=== PATIENT | female | born 1975 | race Caucasian/White ===

== ENCOUNTER 2025-02-18 11:42 | Inpatient (IN) | payer BC ==
[~2025-02-18] VITALS: Ht 162.6 cm; Wt 111.6 kg
[2025-02-18] MEDS ORDERED: SERT-440 PO (12:17)
[2025-02-18] MEDS ORDERED: ATOR10TA PO (12:17)
[2025-02-18] MEDS ORDERED: QUET50TA24 PO (12:17)
[2025-02-18] MEDS ORDERED: LOSA100T31 PO (12:17)
[2025-02-18] MEDS ORDERED: TRAZ150T75 PO (12:17)
[2025-02-18] MEDS ORDERED: CARV6.252 PO (12:17)
[2025-02-18] MEDS ORDERED: GABA600T12 PO (12:17)
[2025-02-18 12:39] LABS: PLATELET COUNT (AUTO) 259 K/uL (179-408); RED BLOOD CELL COUNT(AUTO) 4.34 MIL/uL (3.63-4.92); RED CELL DISTRIBUTION WIDTH 14.0 % (12.3-17.7); WHITE BLOOD COUNT (AUTO) 5.9 K/uL (3.8-11.8)
[2025-02-18] MEDS: IV NORMAL SALINE 1000 ML BAG IV ONE (12:40)
[2025-02-18 12:53] LABS: ETHANOL < 3 MG/DL (0-10)
[2025-02-18 12:55] LABS: ASPARTATE AMINOTRANSFERASE 18 U/L (15-37); CREATININE 1.8 mg/dL (0.6-1.3); SODIUM SERUM 138 mmol/L (136-145); TOTAL PROTEIN, SERUM 6.6 g/dL (6.4-8.2); UREA NITROGEN, BLOOD 17 mg/dL (7-18)
[2025-02-18 14:22] LABS: *BILIRUBIN,URIN NEGATIVE (NEGATIVE); *BLOOD, URINE NEGATIVE (NEGATIVE); *CLARITY,URINE SLIGHTLY CLOUDY (CLEAR); *COLOR,URINE YELLOW (YELLOW); *KETONES,URINE TRACE (NEGATIVE); *PROTEIN,URINE NEGATIVE (NEGATIVE); *UROBILINOGEN,URINE 1.0 E.U./dl (NORMAL); LEUKOCYTE ESTERASE ,URINE 1+ (NEGATIVE); NITRITE, URINE NEGATIVE (NEGATIVE); UGLUCOSE NEGATIVE (NEGATIVE)
[2025-02-18 14:29] LABS: *AMPHETAMINE, URINE NEGATIVE (NEGATIVE); *BARBITURATE, URINE NEGATIVE (NEGATIVE); *BENZODIAZEPINE, URINE NEGATIVE (NEGATIVE); *CANNABINOID, URINE NEGATIVE (NEGATIVE); *COCCAINE, URINE NEGATIVE (NEGATIVE); *OPIATE, URINE NEGATIVE (NEGATIVE); *PHENCYCLIDINE SCREEN,URINE NEGATIVE (NEGATIVE); FENTANYL, URINE NEGATIVE (NEGATIVE); SQUAMOUS EPITHELIAL CELL,UR MODERATE /HPF (NONE SEEN)
[2025-02-18 16:01] VITALS: BP 114/79
[2025-02-18] MEDS ORDERED: ONDANSETRON 4 MG/2 ML VIAL IV PRN (16:15)
[2025-02-18] MEDS ORDERED: ZOLPIDEM 5 MG TABLET PO PRN (16:15)
[2025-02-18] MEDS ORDERED: MAGNESIUM HYDROXIDE 30 ML LIQUID UDC PO PRN (16:15)
[2025-02-18] MEDS ORDERED: ACETAMINOPHEN 325 MG TABLET PO PRN (16:15)
[2025-02-18] MEDS ORDERED: REMEDY ESSENTIAL ZINC PASTE 113 GM TP PRN (16:15)
[2025-02-18] MEDS ORDERED: DEXTROSE 50% 50 ML DISP.SYRIN IV PRN (16:30)
[2025-02-18] MEDS: IV NS 1000 ML 1,000 ML IV PRN (16:49)
[2025-02-18 16:50] VITALS: BP 126/79; TEMP 97.8; O2SAT 98
[2025-02-18] MEDS ORDERED: QUETIAPINE FUMARATE 25 MG TABLET PO PRN (17:00)
[2025-02-18] MEDS: BLOOD SUGAR DIAGNOSTIC 1 EACH STRIP VI SCH (17:07)
[2025-02-18] MEDS: GABAPENTIN 300 MG CAPSULE PO SCH (17:10)
[2025-02-18 17:11] VITALS: BP 120/78; TEMP 97.8; O2SAT 96
[2025-02-18 17:13] VITALS: BP 114/68; TEMP 97.8; O2SAT 96
[2025-02-18 17:14] VITALS: BP 124/78; TEMP 97.8; O2SAT 98
[2025-02-18] MEDS ORDERED: TOPI25TA49 PO (17:34)
[2025-02-18 19:00] VITALS: BP 107/74; TEMP 97.9; O2SAT 95
[2025-02-18] MEDS ORDERED: Medication Not On Formulary EA (Trazodone Hcl (Desyrel) 1 TAB) PO SCH (21:00)
[2025-02-18] MEDS: TRAZODONE 100 MG TABLET PO SCH (21:23)
[2025-02-18] MEDS: INSULIN REGULAR, HUMAN 1000 UNIT/10 ML VIAL SQ PRN (21:26)
[2025-02-19] VITALS: BP 136/79; O2SAT 95
[2025-02-19 04:00] VITALS: BP 124/78; TEMP 97.9; O2SAT 97
[2025-02-19 07:08] LABS: PLATELET COUNT (AUTO) 228 K/uL (179-408); RED BLOOD CELL COUNT(AUTO) 4.07 MIL/uL (3.63-4.92); RED CELL DISTRIBUTION WIDTH 14.1 % (12.3-17.7); WHITE BLOOD COUNT (AUTO) 4.6 K/uL (3.8-11.8)
[2025-02-19 07:32] VITALS: BP 124/72; TEMP 97.7; O2SAT 97
[2025-02-19 07:48] LABS: CREATININE 0.9 mg/dL (0.6-1.3); SODIUM SERUM 145.0 mmol/L (136-145); UREA NITROGEN, BLOOD 11.0 mg/dL (7-18)
[2025-02-19] MEDS: ATORVASTATIN 10 MG TABLET PO SCH (08:35)
[2025-02-19] MEDS: TOPIRAMATE 25 MG TABLET PO SCH (08:35)
[2025-02-19] MEDS: SERTRALINE HCL 100 MG TABLET PO SCH (08:35)
[2025-02-19] MEDS: CARVEDILOL 6.25 MG TABLET PO SCH (08:38)
[2025-02-19 11:35] VITALS: BP 107/65; TEMP 97.9; O2SAT 96
[2025-02-19 15:50] VITALS: BP 120/72; TEMP 98.3; O2SAT 97
[2025-02-19 19:40] VITALS: BP 127/79; TEMP 98.6; O2SAT 97
[2025-02-19] MEDS: INSULIN REGULAR, HUMAN 300 UNITS/3 ML VIAL SQ PRN (20:22)
[2025-02-20 06:47] LABS: PLATELET COUNT (AUTO) 246 K/uL (179-408); RED BLOOD CELL COUNT(AUTO) 4.45 MIL/uL (3.63-4.92); RED CELL DISTRIBUTION WIDTH 14.0 % (12.3-17.7); WHITE BLOOD COUNT (AUTO) 4.7 K/uL (3.8-11.8)
[2025-02-20 07:07] LABS: CREATININE 0.8 mg/dL (0.6-1.3); SODIUM SERUM 146.0 mmol/L (136-145); UREA NITROGEN, BLOOD 8.0 mg/dL (7-18)
[2025-02-20 12:43] VITALS: BP 132/75; TEMP 98.1; O2SAT 98
[2025-02-20] MEDS ORDERED: AMOX-427 PO (12:47)
== END 2025-02-20 13:20 | disposition other institution (70) | DRG 640 ==
LOC: ER 11:42 → TELE3 15:53 → MEDSURG3 02-19 08:38
PROVIDERS: ADMIT Student in an Organized Health Care Education/Training Program; ATTEND Student in an Organized Health Care Education/Training Program
PROC: 05HC33Z Insertion of Infusion Device into Left Basilic Vein, Percutaneous Approach (ICD-10-PCS; principal; 2025-02-18)
DX: E86.0 Dehydration (principal); N17.0 Acute kidney failure with tubular necrosis; E44.1 Mild protein-calorie malnutrition; Z68.41 Body mass index [BMI] 40.0-44.9, adult; I95.9 Hypotension, unspecified; E11.65 Type 2 diabetes mellitus with hyperglycemia; I95.1 Orthostatic hypotension; F15.11 Other stimulant abuse, in remission; F43.10 Post-traumatic stress disorder, unspecified; Z90.710 Acquired absence of both cervix and uterus; E88.09 Other disorders of plasma-protein metabolism, not elsewhere classified; I50.9 Heart failure, unspecified; I11.0 Hypertensive heart disease with heart failure; E11.9 Type 2 diabetes mellitus without complications; F32.A Depression, unspecified; F41.9 Anxiety disorder, unspecified; E78.5 Hyperlipidemia, unspecified; J40 Bronchitis, not specified as acute or chronic; Z79.899 Other long term (current) drug therapy; R82.71 Bacteriuria
CPT/HCPCS: 36415; 71045; 83605; 83735; 84100; 84443; 84484; 85025; 85730; 87040; 87086; 93307; A4606; A4663; G0378; G0480; J1815; J1956; J7040

== ENCOUNTER 2025-03-03 10:30 | Emergency (ER) | payer BC ==
[~2025-03-03] VITALS: Ht 162.6 cm; Wt 111.1 kg
[~2025-03-03 10:30] MED LIST: AMOX-427 PO; ATOR10TA PO; CARV6.252 PO; GABA600T12 PO; LOSA100T31 PO; QUET50TA24 PO; SERT-440 PO; TOPI25TA49 PO; TRAZ150T75 PO
[2025-03-03 10:33] VITALS: BP 140/91
[2025-03-03] MEDS ORDERED: NAPR500T6 PO (11:56)
[2025-03-03 12:01] VITALS: BP 142/89; TEMP 98; O2SAT 97
== END 2025-03-03 12:02 | disposition home or self-care (01) ==
LOC: ER 10:30
DX: E11.9 Type 2 diabetes mellitus without complications (principal); M17.0 Bilateral primary osteoarthritis of knee; F32.A Depression, unspecified; F41.9 Anxiety disorder, unspecified; F43.10 Post-traumatic stress disorder, unspecified; K21.9 Gastro-esophageal reflux disease without esophagitis; F19.10 Other psychoactive substance abuse, uncomplicated; F15.10 Other stimulant abuse, uncomplicated; Z79.899 Other long term (current) drug therapy; Z90.710 Acquired absence of both cervix and uterus; Z86.79 Personal history of other diseases of the circulatory system; Z87.442 Personal history of urinary calculi
CPT/HCPCS: A4606; A4663